=== PATIENT | female | born 1955 | race Caucasian/White ===

== ENCOUNTER → 2017-05-18 | Outpatient (CLI) | payer MEDICARE, OTHER ==
--- NOTE | 2017-05-18 17:04 | PCVCIMAG ---
APPROVED REPORT Exam: Stress Echocardiogram Indication: Pre-Operative CV evaluation, PSVT, HTN, Obesity Patient Location: Echo lab Stress Nurse: Cait Kan RN Status: routine HR: 87 bpm Rhythm: NSR Procedure The patient underwent an Exercise Stress Test using the Kana Protocol. Blood pressure, heart rate, and EKG were monitored. An Echocardiogram was performed by surgical instrument technician in four stages in quad fashion. At peak stress, four selected images were obtained and placed side by side with resting images for comparison. Stress Test Details Stress Test: Exercise stress testing was performed using a Kana protocol. HR Resting HR: 87 bpmMax Heart Rate (APMHR): 157 bpm Max HR Achieved: 148 bpmTarget HR (85% APMHR): 133 bpm % of APMHR: 94 Recovery HR: 99 bpm HR response to stress: Normal HR response to stress BP Resting BP: 110/78 mmHg Max BP: 164/80 mmHg Recovery BP: 126/76 mmHg ECG Resting ECG: Sinus Rhythm Stress ECG: Sinus Rhythm with occasional isolated PVCs ST Change: Normal Arrhythmia: None Recovery ECG: Sinus Rhythm Recovery Arrhythmia: None Clinical Reason for Termination: Maximal effort Stress Symptoms: Knee pain Exercise duration: 6 min sec Highest Stage Achieved: Stage 2: 2.5 mph at 12% grade. Exercise capacity: 7 METs Overall Exercise Capacity for Age: Average Pre-Stress Echo The resting Echocardiogram showed normal left ventricular contractility with an estimated Ejection Fraction of about >55%. Normal wall motion in all segments on baseline images. Post-Stress Echo The stress Echocardiogram showed normal left ventricular contractility with an estimated Ejection Fraction of about 65%. Normal augmentation of wall motion in all segments on post stress images. Clinical No clinical or ECG evidence for ischemia. Conclusion Clinical Response: Non-ischemic Exercise Capacity: Average Stress ECG Response: Non-ischemic Stress Echo Images: Non-ischemic Other Information Study Quality: Adequate
--- NOTE | 2017-05-18 17:44 | PCVCIMAG ---
EXAM: BILATERAL SUPERFICIAL VENOUS DUPLEX INDICATION: Leg pain and swelling. FINDINGS: Right leg: No thrombus in the common femoral, main femoral, or popliteal veins. These veins are compressible. Right Great Saphenous Vein: At the saphenofemoral junction the diameter is 6.0 mm, in the mid thigh it is 6.3 mm, and in the calf it is 6.0 mm. There is not significant venous insufficiency/reflux throughout. Venous insufficiency/reflux duration is 0 seconds. Right Small Saphenous Vein: At the saphenopopliteal junction the diameter is 6.3 mm, and in the calf it is 6.0 mm. There is not significant venous insufficiency/reflux throughout. Venous insufficiency/reflux duration is 0.3 seconds. There is not a cranial extension present. Left leg: No thrombus in the common femoral, main femoral, or popliteal veins. These veins are compressible. Left Great Saphenous Vein: At the saphenofemoral junction the diameter is 7.7 mm, in the mid thigh it is 9.1 mm, and in the calf it is 6.4 mm. There is not significant venous insufficiency/reflux throughout. Venous insufficiency/reflux duration is 0.1 seconds. Left Small Saphenous Vein: At the saphenopopliteal junction the diameter is 6.7 mm, and in the calf it is 5.2 mm. There is not significant venous insufficiency/reflux throughout. Venous insufficiency/reflux duration is 0 seconds. There is not a cranial extension present. IMPRESSION: Right Great Saphenous Vein: No significant venous insufficiency/reflux is present as noted above. Right Small Saphenous Vein: No significant venous insufficiency/reflux is present as noted above. Left Great Saphenous Vein: No significant venous insufficiency/reflux is present as noted above. Left Small Saphenous Vein: No significant venous insufficiency/reflux is present as noted above. LOC:[id number]
== END | disposition home or self-care (01) ==
LOC: PCVCIMAG 13:47
PROVIDERS: ATTEND Internal Medicine Cardiovascular Disease
DX: Z01.818 Encounter for other preprocedural examination (principal); E66.9 Obesity, unspecified; I47.1 Supraventricular tachycardia; I49.3 Ventricular premature depolarization; I87.2 Venous insufficiency (chronic) (peripheral); M79.661 Pain in right lower leg; M79.662 Pain in left lower leg
CPT/HCPCS: 93325; 93351; 93970

== ENCOUNTER → 2019-08-15 | Outpatient (CLI) | payer MEDICARE, OTHER | END | disposition home or self-care (01) | LOC: PCVCCLINIC 11:00 | PROVIDERS: ATTEND Internal Medicine Cardiovascular Disease | DX: Z01.818 Encounter for other preprocedural examination (principal); I47.1 Supraventricular tachycardia; I10 Essential (primary) hypertension; I87.2 Venous insufficiency (chronic) (peripheral); E78.00 Pure hypercholesterolemia, unspecified; Z88.2 Allergy status to sulfonamides; Z88.8 Allergy status to other drugs, medicaments and biological substances; Z72.89 Other problems related to lifestyle; Z79.899 Other long term (current) drug therapy | CPT/HCPCS: 36415; 80061; 93005; G0463 ==

== ENCOUNTER → 2019-09-03 | Outpatient (CLI) | payer MEDICARE, OTHER ==
[~2019-09-03] MED LIST: REGADENOSON 0.4 MG/5 ML DISP.SYRIN. IV ONE
--- NOTE | 2019-09-05 10:06 | PCVCIMAG ---
APPROVED REPORT Imaging Protocol: Rest Tc-99m/Stress Tc-99m 1 day Study performed: 09/03/2019 10:46:25 Indication: Pre-Operative CV evaluation, PSVT Patient Location: Out-Patient Stress Nurse: Raina Olsen RN, Cait Kan RN PA Tech:Stephanie Hymancat [facility] Ht: 5 ft 4 in Wt: 180 lbs BSA: 1.87 m2 HR: 69 bpm BP: 120/67 mmHg BMI: 30.8 Rhythm: Sinus Rhythm Medical History Medical History: Hyperlipidemia, HTN, PVD Medications: Cardizem, Lasix, Acupril, Crestor Allergies: Many - none relevant to this exam. Cardiac Risk Factors: Age, FHX of CAD Pretest Chest Pain Characteristics: No chest pain Exercise History: Sedentary Physical Disabilities: Knees, feet Resting Data Rest SPECT myocardial perfusion imaging was performed in supine position 45 minutes following the intravenous injection of 11.1 mCi of Tc-99m Sestamibi. Time of rest injection: 1000 Date: 09/03/2019 Administration Route: IV Administration Site: Left Arm Pharmacologic Stress Pharmacologic stress test was performed by injecting Regadenoson 0.4 mg IV push over 10-15 seconds immediately followed by the intravenous injection of 34 mCi of Tc-99m Sestamibi. Time of stress injection: 1140 Date: 09/03/2019 Administration Route: IV Administration Site: Left Arm Gated Stress SPECT was performed 45 minutes after stress injection. The images were gated to evaluate regional wall motion and calculate left ventricular ejection fraction. Stress Test Details Stress Test: Pharmacologic stress testing performed using 0.4 mg of regadenoson per 5 mL given IV over 10 seconds. Reason for pharmacologic stress test: physical limitation, bad right knee and left foot in a cast. HRMax Heart Rate (APMHR): 155 bpm Resting HR: 69 bpmTarget HR (85% APMHR): 131 bpm Max HR Achieved: 98 bpm % of APMHR: 63 Recovery HR: 85 bpm BP Resting BP: 120/67 mmHg Max BP: 127/60 mmHg Recovery BP: 120/57 mmHg ECG Resting ECG: Sinus Rhythm Stress ECG: Sinus Rhythm Arrhythmia: None Recovery ECG: Sinus Rhythm Clinical Reason for Termination: Completed protocol Stress Symptoms: Dyspnea, Headache, Fatigue Symptoms resolved with caffeine. Stress ECG Conclusion ECG: Non-ischemic Study Data Post stress, the left ventricular ejection was 74%.. SSS: 0 SRS: 0 SDS: 0 TID = 0.93. Perfusion No evidence of stress induced ischemia or prior myocardial infarction. Wall Motion Normal left ventricular size and function with no regional wall motion abnormalities. Nuclear Conclusion No evidence of stress induced ischemia or prior myocardial infarction. Normal left ventricular size and function with no regional wall motion abnormalities. Post stress, the left ventricular ejection was 74%. No prior study available for comparison. Interpreted by: Blake Wray MD Electronically Approved: 09/03/2019 15:42:20 <Conclusion> ECG: Non-ischemic
--- NOTE | 2019-09-05 10:07 | PCVCIMAG ---
APPROVED REPORT Study performed: 09/03/2019 08:58:33 EXAM: Comprehensive 2D, Doppler, and color-flow Echocardiogram Patient Location: Echo lab Status: routine BSA: 1.87 HR: 60 bpmBP: 114/82 mmHg Rhythm: NSR Other Information Study Quality: Adequate 2D Dimensions IVSd: 9.15 (7-11mm) LVDd: 40.83 mm PWd: 9.43 (7-11mm)Ascending Ao: 29.35 (22-36mm) LVDs: 32.22 (25-40mm) Left Atrium: 33.75 (27-40mm) Aortic Root: 27.09 mm LV Single Plane 4CH: 59.60 % LV Single Plane 2CH: 66.16 % Biplane EF: 63.1 % Volumes Left Atrial Volume (Systole) Single Plane 4CH: 42.01 mLSingle Plane 2CH: 48.79 mL LA ESV Index: 25.00 mL/m2 Aortic Valve AoV Peak Slava.: 1.54 m/s AO Peak Gr.: 9.45 mmHgLVOT Max P.89 mmHg LVOT Max V: 0.99 m/s Mitral Valve E/A Ratio: 0.8 MV Decel. Time: 276.28 ms MV E Max Slava.: 0.76 m/s MV A Slava.: 0.90 m/s IVRT: 141.87 ms Pulmonary Valve PV Peak Slava.: 1.03 m/sPV Peak Gr.: 4.20 mmHg Pulmonary Vein P Vein S: 0.31 m/sP Vein A: 0.32 m/s P Vein D: 0.45 m/sP Vein A Dur.: 134.9 msec P Vein S/D Ratio: 0.69 Tricuspid Valve TR Peak Slava.: 2.48 m/s TR Peak Gr.: 24.65 mmHg Left Ventricle The left ventricle is normal size. There is normal LV segmental wall motion. There is normal left ventricular wall thickness. Left ventricular systolic function is normal. The left ventricular ejection fraction is within the normal range. LVEF is 50-55%. Grade I - abnormal relaxation pattern. Right Ventricle The right ventricle is normal size. The right ventricular systolic function is normal. Atria The left atrium size is normal. The right atrium size is normal. Aortic Valve The aortic valve is normal in structure. No aortic regurgitation is present. There is no aortic valvular stenosis. Mitral Valve The mitral valve is normal in structure. There is no mitral valve regurgitation noted. No evidence of mitral valve stenosis. Tricuspid Valve The tricuspid valve is normal in structure. Mild tricuspid regurgitation with PAP of 35 mmHg. Pulmonic Valve The pulmonary valve is normal in structure. Mild pulmonic regurgitation. Great Vessels The aortic root is normal in size. IVC is normal in size and collapses >50% with inspiration. Pericardium There is no pericardial effusion. There is no pleural effusion. <Conclusion> The left ventricle is normal size. LVEF is 50-55%. Grade I - abnormal relaxation pattern. The right ventricle is normal size. The left atrium size is normal. The aortic valve is normal in structure. The aortic valve is normal in structure. There is no mitral valve regurgitation noted. Mild tricuspid regurgitation with PAP of 35 mmHg. The aortic root is normal in size. There is no pericardial effusion.
== END | disposition home or self-care (01) ==
LOC: PCVCIMAG 09:06
PROVIDERS: ATTEND Internal Medicine Cardiovascular Disease
DX: I08.8 Other rheumatic multiple valve diseases (principal); I10 Essential (primary) hypertension; Z88.2 Allergy status to sulfonamides; Z88.8 Allergy status to other drugs, medicaments and biological substances
CPT/HCPCS: 78452; 93017; 93306; A9500; J2785